=== PATIENT | female | born 1950 | race Caucasian/White ===

== ENCOUNTER 2019-04-20 16:36 | Emergency (ER) | payer SELFPAY ==
--- NOTE | 2019-04-20 16:49 | ER Document Report ---
ED Medical Screen (RME) - General Chief Complaint: Psych Problem Stated Complaint: IVC Time Seen by Provider: 04/20/19 16:45 Mode of Arrival: Ambulatory Information source: Patient, Law Enforcement Notes: 69-year-old female presented to ED for IVC. She has paperwork that has been taken out by a family member that she is a danger to herself. According to the family members she is seeing and hearing things that are not present. She is taken a knife and cutting up her closed. She was running out in the street. She is paranoid and thinks somebody is out to get her. Patient is speaking in full sentences and does not look in any acute distress at the moment. IR may
--- NOTE | 2019-04-20 17:47 | EKG REPORT ---
SEVERITY:- BORDERLINE ECG - SINUS RHYTHM PROBABLE LEFT ATRIAL ABNORMALITY : Confirmed by: Maximino Moser MD 20-Apr-2019 17:46:11
[2019-04-20 18:06] LABS: ABSOLUTE LYMPHOCYTES (AUTO) 1.7 10^3/uL (0.5-4.7); ABSOLUTE MONOCYTES (AUTO) 0.8 10^3/uL (0.1-1.4); ABSOLUTE NEUT (AUTO) 9.3 10^3/uL (1.7-8.2); BASOPHILS % (AUTO) 0.4 % (0-2); EOSINOPHILS % (AUTO) 0.2 % (0-6); HEMATOCRIT 33.7 % (36.0-47.0); HEMOGLOBIN 11.2 g/dL (12.0-15.5); LYMPHOCYTES % (AUTO) 14.4 % (13-45); MEAN CORPUSCULAR HGB CONC 33.3 g/dL (32.0-36.0); MEAN CORPUSCULAR VOLUME 87 fl (80-97); MONOCYTES % (AUTO) 6.9 % (3-13); PLATELET COUNT 366 10^3/uL (150-450); RED BLOOD COUNT 3.86 10^6/uL (3.72-5.28); RED CELL DISTRIBUTION WIDTH 13.9 % (11.5-14.0); SEGMENTED NEUTROPHILS % (AUTO) 78.1 % (42-78); TOTAL CELLS COUNTED % (AUTO) 100 %; WHITE BLOOD COUNT 11.9 10^3/uL (4.0-10.5)
[2019-04-20 18:39] LABS: ALBUMIN 4.3 g/dL (3.5-5.0); ALKALINE PHOSPHATASE 87 U/L (38-126); ANION GAP 10 (5-19); ASPARTATE AMINO TRANSFERASE 21 U/L (14-36); BILIRUBIN,DIRECT 0.2 mg/dL (0.0-0.4); BILIRUBIN,TOTAL 0.4 mg/dL (0.2-1.3); BLOOD UREA NITROGEN 17 mg/dL (7-20); CALCIUM 10.4 mg/dL (8.4-10.2); CARBON DIOXIDE 26 mmol/L (22-30); CHLORIDE 103 mmol/L (98-107); GLUCOSE 98 mg/dL (75-110); TOTAL PROTEIN 7.3 g/dL (6.3-8.2)
[2019-04-20 18:42] LABS: ACETAMINOPHEN < 10 ug/mL (10-30); ALCOHOL < 10 mg/dL (NONE DETECTED); SALICYLATE < 1.0 mg/dL (2.0-20.0)
--- NOTE | 2019-04-20 18:50 | ER Document Report ---
ED General - General Chief Complaint: Psych Problem Stated Complaint: IVC Time Seen by Provider: 04/20/19 16:45 Mode of Arrival: Ambulatory Information source: Patient Notes: This 69-year-old female presents emergency department on IVC papers. Reports she is a 69-year-old female with no documented history of mental illness. Reports that she is only on medication for insomnia and hypothyroidism. Patient is hearing voices, telling her what to do. Patient is talking to people who are not there. According to IVC papers she will quack like a duck so people do not understand what she is saying. She is not eating drinking or taking care of herself. When I went into the room patient was talking to somebody that was not there. I asked who she was talking to and she said it was Bill her [id number]. Patient is very calm. No other notes regarding patient. I am not sure how long this has been going on , no primary contact listed. TRAVEL OUTSIDE OF THE [place] IN LAST 30 DAYS: No - HPI Quality of pain: No pain Associated symptoms: None - Related Data Allergies/Adverse Reactions: codeine Allergy (Intermediate, Verified 04/20/19 16:52) Unknown reaction Home Medications: supposed to be on synthroid. Past Medical History - General Information source: Patient, Law Enforcement - Social History Smoking Status: Current Every Day Smoker Chew tobacco use (# tins/day): No Frequency of alcohol use: None Drug Abuse: None Family History: None Patient has suicidal ideation: No Patient has homicidal ideation: No Review of Systems - Review of Systems Notes: Review HPI for review of systems., All other systems negative Physical Exam - Vital signs Vitals: Temp Pulse Resp BP Pulse Ox 98.1 F 104 H 18 189/88 H 99 04/20/19 16:43 04/20/19 16:43 04/20/19 16:43 04/20/19 16:43 04/20/19 16:43 - Notes Notes: PHYSICAL EXAMINATION: GENERAL: Well-appearing and in no acute distress HEAD: Atraumatic, normocephalic. EYES: extraocular movements intact, sclera anicteric, conjunctiva are normal. ENT: nares patent, Moist mucous membranes. NECK: Normal range of motion, supple without lymphadenopathy LUNGS: CTAB and equal. No wheezes rales or rhonchi. HEART: Regular rate and rhythm without murmurs ABDOMEN: Soft, no tenderness. No guarding, no rebound EXTREMITIES: Normal range of motion, NEUROLOGICAL: Cranial nerves grossly intact. PSYCH: Normal mood, normal affect. calm SKIN: Warm, Dry, normal turgor, no rashes or lesions noted Course - Re-evaluation Re-evalutation: 04/20/19 20:23 Patient calm remains in bed no distress report given to ELIEL Farrell Dictation of this chart was performed using voice recognition software; therefore, there may be some unintended grammatical errors. - Vital Signs Vital signs: Temp Pulse Resp BP Pulse Ox 98.1 F 104 H 18 189/88 H 99 04/20/19 16:43 04/20/19 16:43 04/20/19 16:43 04/20/19 16:43 04/20/19 16:43 - Laboratory Result Diagrams: 04/20/19 17:50 04/20/19 17:50 Laboratory results interpreted by me: 04/20/19 04/20/19 17:50 17:50 WBC 11.9 H Hgb 11.2 L Hct 33.7 L Absolute Neuts (auto) 9.3 H Seg Neutrophils % 78.1 H Calcium 10.4 H Salicylates < 1.0 L Acetaminophen < 10 L - EKG Interpretation by Mn EKG shows normal: Sinus rhythm Rate: Normal Rhythm: NSR Discharge - Discharge Clinical Impression: Altered mental status Condition: Stable Disposition: PSYCH HOSP/UNIT
[2019-04-21 06:19] LABS: APPEARANCE,URINE CLEAR; BILIRUBIN,URINE NEGATIVE (NEGATIVE); COLOR,URINE YELLOW; GLUCOSE, URINE NEGATIVE (NEGATIVE); KETONES,URINE TRACE mg/dL (NEGATIVE); LEUKOCYTE ESTERASE,URINE NEGATIVE (NEGATIVE); NITRITE,URINE NEGATIVE (NEGATIVE); PROTEIN,URINE NEGATIVE (NEGATIVE); URINE SPECIFIC GRAVITY 1.012; UROBILINOGEN,URINE NEGATIVE mg/dL (<2.0)
[2019-04-21 06:38] LABS: URINE AMPHETAMINES SCREEN NEGATIVE; URINE BARBITURATES SCREEN NEGATIVE; URINE BENZODIAZEPINES SCREEN NEGATIVE; URINE COCAINE SCREEN NEGATIVE; URINE MARIJUANA (THC) SCREEN NEGATIVE; URINE METHADONE SCREEN NEGATIVE; URINE PHENCYCLIDINE SCREEN NEGATIVE
[2019-04-21] MEDS: BUSPIRONE HCL 10 MG TABLET PO SCH ×2 (12:15→17:38)
[2019-04-21 12:56] LABS: FREE T4 (FREE THYROXINE) 1.67 ng/dL (0.78-2.19)
[2019-04-21 13:10] LABS: THYROID STIMULATING HORMONE 1.6 uIU/mL (0.47-4.68)
--- NOTE | 2019-04-21 13:12 | ER Document Report ---
Doctor's Note Notes: 04/21/19 13:11 Vital signs reviewed, nurse's notes, providers notes and mental health note reviewed. Patient laying in bed, has no complaints at this time. Physical examination was unremarkable. Patient appears calm. We will continue to monitor.
[2019-04-21 17:57] VITALS: BP 189/95
== END 2019-04-21 18:10 ==
LOC: ER 16:36
DX: R41.82 Altered mental status, unspecified (principal); F29 Unspecified psychosis not due to a substance or known physiological condition; F17.200 Nicotine dependence, unspecified, uncomplicated
CPT/HCPCS: 36415; 80053; 80307; 81001; 84439; 84443; 85025; 93005; 93010; 99285